=== PATIENT | male | born 1985 | race African-American/Black ===

== ENCOUNTER 2016-06-30 10:48 | Emergency (ER) | payer MEDICAID ==
--- NOTE | 2016-06-30 11:17 | ED Physician Chart ---
Chief Complaint/HPI - Patient Information Date Seen:: 06/30/16 Time Seen:: 11:12 Chief Complaint:: penile dc History of Present Illness:: pt noted yellow penile dc and some mild dysuria since last nt. had chlamydia 1x in past yrs ago. has more than 1 sex partner lately. uses condom w penetrating sex but not w oral. no known sick partners. no fever. no gi upset. no n/v/d. no abd pain, no back pain. no cough. no st. no eye dc. mild rhinitis. no mini pmh. doesnt want a shot. Allergies:: Allergies Allergy/AdvReac Type Severity Reaction Status Date / Time No Known Allergies Allergy Verified 06/30/16 11:00 Vitals:: Vital Signs - 8 hr 06/30/16 10:48 Temp 97.8 F HR 85 RR 16 BP 129/76 O2 Sat % 97 Historian:: Patient Review of Systems - Review of Systems General/Constitutional: No fever, No chills, No weight loss, No weakness, No diaphoresis, No edema, No loss of appetite Skin: No skin lesions, No rash, No bruising Head: No headache, No light-headedness Eyes: No loss of vision, No pain, No diplopia ENT: No earache, Nasal drainage, No sore throat, No tinnitus Neck: No neck pain, No swelling, No thyromegaly, No stiffness, No mass noted Cardio Vascular: No chest pain, No palpitations, No PND, No orthopnea, No edema Pulmonary: No SOB, No cough, No sputum, No wheezing GI: No nausea, No vomiting, No diarrhea, No pain, No melena, No hematochezia, No constipation, No hematemesis G/U: Dysuria, No dysuria, No frequency, No hematuria, Other (penile dc) Musculoskeletal: No bone or joint pain, No back pain, No muscle pain Endocrine: No polyuria, No polydipsia Psychiatric: No prior psych history, No depression, No anxiety, No suicidal ideation Hematopoietic: No bruising, No lymphadenopathy Allergic/Immuno: No urticaria, No angioedema Neurological: No syncope, No focal symptoms, No weakness, No paresthesia, No headache, No seizure, No dizziness, No confusion, No vertigo Past Medical History - Past Medical History Past Medical History: Other (chlamydia genital infection 1x) Social History: Non Smoker, Single Psychiatricy History: Depression Medication: Reviewed Family Medical History - Family Member Maternal Grandmother History Unknown: Yes Ethnicity: Non- Living Status: Still Living Hx Family Diabetes: Yes Physical Exam - Physical Examination General/Constitutional: Awake, Well-developed, well-nourished, Alert, No distress, GCS 15, Non-toxic appearing, Ambulatory Other Gen/Cons comments:: slender build. healthy. no distress. abd is soft/nt pos nabs. no rebound. no cva tndr on back Head: Atraumatic Eyes: Lids, conjuctiva normal, PERRL, EOMI Skin: Nl inspection, No rash, No skin lesions, No ecchymosis, Well hydrated, No lymphadenopathy ENMT: External ears, nose nl, Nasal exam nl, Lips, teeth, gums nl Neck: Nontender, Full ROM w/o pain, No JVD, No nuchal rigidity, No bruit, No mass, No stridor Respiratory: Nl effort/Exclusion, Clear to Auscultation, No Wheeze/Rhonchi/Rales Cardio Vascular: RRR, No murmur, gallop, rubs, NL S1 S2 GI: No tenderness/rebounding/guarding, No organomegaly, No hernia, Normal BS's, Nondistended, No mass/bruits, No McBurney tenderness : No CVA tenderness, NL external genitalia Other comments:: nrml ext male genitals. uncirc w easily reducable foreskin. no testicular tndrness. no hernias. no masses. no rash. no obv mini dc. swab collected for pcr gc/chlam tsting. Extremities: No tenderness or effusion, Full ROM, normal strength in all extremities, No edema, Normal digits & nails Neuro/Psych: Alert/oriented, DTR's symmetric, Normal sensory exam, Normal motor strength, Judgement/insight normal, Mood normal, Normal gait, No focal deficits Misc: normal gait, Normal back, No paraspinal tenderness Labs/Radiology/EKG Results - Lab Results Results: Laboratory Tests 06/30/16 11:00 Urine Source CLEAN C Urine Color YELLOW Urine Clarity HAZY Urine pH 6.0 Ur Specific [place] 1.025 Urine Protein NEGATIVE Urine Glucose (UA) NEGATIVE Urine Ketones NEGATIVE Urine Blood SMALL H Urine Nitrate NEGATIVE Urine Bilirubin NEGATIVE Urine Urobilinogen 1.0 Ur Leukocyte Esterase LARGE H Urine RBC 0-2 H Urine WBC 50-100 H Ur Epithelial Cells FEW Urine Bacteria FEW Urine Mucus FEW ED Septic Shock - . Is Septic Shock (SBP<90, OR Lactate>4 mmol\L) present?: No - <6hrs of presentation: Vital Signs: Vital Signs - 8 hr 06/30/16 10:48 Temp 97.8 F HR 85 RR 16 BP 129/76 O2 Sat % 97 Reassessment (Disposition) - Reassessment Reassessment:: explained to pt that his results will take few days to confirm...advise he fu w pmd saturday for further advice. due to evidence of UTI...pt given regimen w [id number] plus cefixime [id number] as rx as pt doesnt want shot and we have no cefixime in ed. pt advised to use safe sex practices until results known and let partner(s) know if cx pos. Reassessment Condition:: Improved - Diagnosis Diagnosis:: UTI possible STD r/o gc/chlamydia - Aftercare/Follow up Instructions Aftercare/Follow-Up Instructions:: Counseled pt regarding lab results/diagnosis & need follow up - Patient Disposition Discharge/Transfer:: Home Condition at Disposition:: Improved
[2016-06-30 11:35] LABS: URINE BILIRUBIN NEGATIVE (NEGATIVE); URINE BLOOD SMALL (NEGATIVE); URINE COLOR YELLOW; URINE GLUCOSE (UA) NEGATIVE (NEGATIVE); URINE KETONE NEGATIVE (NEGATIVE); URINE PROTEIN NEGATIVE (NEGATIVE)
[2016-06-30 11:38] LABS: URINE BACTERIA FEW /hpf (NONE SEEN); URINE EPITHELIAL CELLS FEW /lpf (FEW); URINE RBC 0-2 /hpf (0-5); URINE WBC 50-100 /hpf (0-5)
== END 2016-06-30 12:09 | disposition home or self-care (01) ==
LOC: ER 10:48
DX: N39.0 Urinary tract infection, site not specified (principal)
CPT/HCPCS: 81001-TC; 87086-90; 87491-90; Z7502

== ENCOUNTER 2017-07-08 13:31 | Emergency (ER) | payer MEDICAID, OTHER ==
--- NOTE | 2017-07-08 14:15 | ED Physician Chart ---
ED Chief Complaint/HPI - Patient Information Date Seen:: 07/08/17 Time Seen:: 13:45 Chief Complaint:: Rash History of Present Illness:: onset x 3 days of generalized itching rash; pt denies trauma, H/As, S/T, neck pain, C/P, SOB, swelling, Abd. 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 Allergies:: Allergies Allergy/AdvReac Type Severity Reaction Status Date / Time No Known Allergies Allergy Verified 06/30/16 11:00 Vitals:: Vital Signs - 8 hr 07/08/17 13:46 Temp 98.7 F HR 115 RR 16 BP 119/78 O2 Sat % 97 Historian:: Patient Review:: Nurse's Note Reviewed ED Review of Systems - Review of Systems General/Constitutional: No fever, No chills, No weight loss, No weakness, No diaphoresis, No edema, No loss of appetite Skin: No skin lesions, Rash, No bruising Head: No headache, No light-headedness Eyes: No loss of vision, No pain, No diplopia ENT: No earache, No nasal drainage, No sore throat, No tinnitus Neck: No neck pain, No swelling, No thyromegaly, No stiffness, No mass noted Cardio Vascular: No chest pain, No palpitations, No PND, No orthopnea, No edema Pulmonary: No SOB, No cough, No sputum, No wheezing GI: No nausea, No vomiting, No diarrhea, No pain, No melena, No hematochezia, No constipation, No hematemesis G/U: No dysuria, No frequency, No hematuria, No nacturia Musculoskeletal: No bone or joint pain, No back pain, No muscle pain Endocrine: No polyuria, No polydipsia Psychiatric: No prior psych history, No depression, No anxiety, No suicidal ideation, No homicidal ideation, No auditory hallucination, No visual hallucination Hematopoietic: No bruising, No lymphadenopathy Allergic/Immuno: No urticaria, No angioedema Neurological: No syncope, No focal symptoms, No weakness, No paresthesia, No headache, No seizure, No dizziness, No confusion, No vertigo ED Past Medical History - Past Medical History Obtainable: Yes Past Medical History: No significant medical hx Family History: HTN Social History: Non Smoker, No Alcohol, No Drug Use, Single Surgical History: None Psychiatricy History: None Medication: Reviewed Family Medical History - Family Member Maternal Grandmother History Unknown: Yes Ethnicity: Non- Living Status: Still Living Hx Family Cancer: No Hx Family Coronary Artery Disease: No Hx Family Congestive Heart Failure: No Hx Family Hypertension: No Hx Family Stroke: No Hx Family Diabetes: No Hx Family Seizures: No Hx Family Dementia: No Hx Family AIDS: No Hx Family HIV: No Hx Family COPD: No Hx Family Hepatitis: No Hx Family Psychiatric Problems: No Hx Family Tuberculosis: No Other Medical History: Bronchitis ED Physical Exam - Physical Examination General/Constitutional: Awake, Well-developed, well-nourished, Alert, No distress, GCS 15, Non-toxic appearing, Ambulatory Head: Atraumatic Eyes: Lids, conjuctiva normal, PERRL, EOMI Skin: Nl inspection, No skin lesions, No ecchymosis, Well hydrated, No lymphadenopathy Other Skin comments:: + generalized Urticaria lesions; no FBs; good NV functions; no cellulitis ENMT: External ears, nose nl, TM canals nl, Nasal exam nl, Lips, teeth, gums nl , Oropharynx nl, Tonsils nl Other ENMT comments:: Uvula: WNL; no FBs; no airway obstruction Neck: Nontender, Full ROM w/o pain, No JVD, No nuchal rigidity, No bruit, No mass, No stridor Other Neck comments:: Supple; no meningeal signs; no cervical tenderness; no bruits Respiratory: Nl effort/Exclusion, Clear to Auscultation, No Wheeze/Rhonchi/Rales Cardio Vascular: RRR, No murmur, gallop, rubs, NL S1 S2, Carotid/Femoral/Distal pulses equal bilaterally GI: No tenderness/rebounding/guarding, No organomegaly, No hernia, Normal BS's, Nondistended, No mass/bruits, No McBurney tenderness Other GI comments:: no pulsatile masses : No CVA tenderness Extremities: No tenderness or effusion, Full ROM, normal strength in all extremities, No edema, Normal digits & nails Neuro/Psych: Alert/oriented, DTR's symmetric, Normal sensory exam, Normal motor strength, Judgement/insight normal, Mood normal, Normal gait, No focal deficits Misc: Normal back, No paraspinal tenderness ED Septic Shock - . Is Septic Shock (SBP<90, OR Lactate>4 mmol\L) present?: No - <6hrs of presentation: Vital Signs: Vital Signs - 8 hr 07/08/17 13:46 Temp 98.7 F HR 115 RR 16 BP 119/78 O2 Sat % 97 ED Reassessment (Disposition) - Reassessment Reassessment:: pt tolerated po fluids well in ER; pt is asymptomatic upon discharge Reassessment Condition:: Improved - Diagnosis Diagnosis:: Rash; Urticaria; Allergic Drug Reaction; Allergic Reaction - Aftercare/Follow up Instructions Aftercare/Follow-Up Instructions:: Counseled pt regarding lab results/diagnosis & need follow up, Refer to Discharge Instructions, Counseled pt & family regarding lab results/diagnosis & need follow up Medication Prescribed:: Rx: Benadryl 25mg po qid prn itching rash; Medrol Dose pack: take as prescribed ; stop all current medications - Patient Disposition Discharge/Transfer:: Home Condition at Disposition:: Stable, Improved (RTER prn if existing s/s reoccur and/or get worse and/or any other new s/s occur; ACIs given for all above Dx; Refer to Oncology Technician/Benchroom Shop Optician/Dentist/Gray Mixing Operator SHAN; F/U with PMD in one day or prn; RTER prn if concerned) ED Discharge Plan - Patient Disposition Admit/Discharge/Transfer: PT DISCHARGED HOME Condition at Disposition: Stable Prescriptions: Diphenhydramine HCL [Benadryl] 25 mg PO QID PRN 7 Days #20 cap PRN Reason: Hives Methylprednisolone [Medrol] 8 mg PO 2XW 7 Days #7 tablet Instructions: Allergies, [id number] Forms: Work Release Form
== END 2017-07-08 14:10 | disposition home or self-care (01) ==
LOC: ER 13:31
DX: L50.0 Allergic urticaria (principal)
CPT/HCPCS: Z7502

== ENCOUNTER 2017-10-27 13:23 | Inpatient (IN) | payer OTHER ==
[2017-10-27 13:55] LABS: % BASOPHILS 2.8 % (0.0-2.0); % EOSINOPHILS 0.8 % (0.0-5.0); % LYMPHOCYTES 18.1 % (20.0-50.0); % MONOCYTES 3.9 % (2.0-10.0); % NEUTROPHILS 74.4 % (40.0-80.0); BASOPHILE ABSOLUTE 0.3 Th/cumm (0-0.2); EOSINOPHILE ABSOLUTE 0.1 Th/cmm (0.1-0.4); HEMATOCRIT 45.6 % (41.0-60); HEMOGLOBIN 14.3 gm/dL (12-16); LYMPHOCYTE ABSOLUTE 1.6 Th/cmm (1.5-3.0); MEAN CELL VOLUME 79.5 fl (80-99); MEAN CORPUSCULAR HEMOGLOBIN 24.9 pg (26.0-30.0); MEAN CORPUSCULAR HGB CONC 31.3 pg (28.0-36.0); MONOCYTE ABSOLUTE 0.4 Th/cmm (0.3-1.0); NEUTROPHILE ABSOLUTE 6.6 Th/cmm (1.8-8.0); PLATELET COUNT 261 Th/cmm (150-400); RED BLOOD COUNT 5.74 Mil/cmm (4.30-5.70); RED CELL DISTRIBUTION WIDTH 13.5 % (11.5-20.0)
[2017-10-27 14:17] LABS: ALB/GLOB RATIO 1.2 (1.0-1.8); ALBUMIN 4.3 gm/dL (4.2-5.5); ALKALINE PHOSPHATASE 60 U/L (34-104); ANION GAP 8.5 (7.0-16.0); BILIRUBIN,TOTAL 1.1 mg/dL (0.3-1.0); BUN - UREA NITROGEN 13 mg/dL (7-25); CALCIUM SERUM 9.8 mg/dL (8.6-10.3); CARBON DIOXIDE 29.7 mEq/L (21.0-31.0); CHLORIDE 102 mEq/L (98-107); CREATININE - SERUM 0.9 mg/dL (0.7-1.3); GFR AFRICAN-AMERICAN > 60.0 ml/min (>90); GFR NON AFRICAN-AMERICAN > 60.0 ml/min; GLUCOSE 99 mg/dL (70-105); POTASSIUM SERUM 4.2 mEq/L (3.5-5.1); SGOT 16 U/L (13-39); SGPT/ALT 16 U/L (7-52); SODIUM SERUM 136 mEq/L (136-145); TOTAL PROTEIN,SERUM 7.9 gm/dL (6.0-8.3)
--- NOTE | 2017-10-27 14:22 | ED Physician Chart ---
ED Chief Complaint/HPI - Patient Information Date Seen:: 10/27/17 Time Seen:: 13:30 Chief Complaint:: RIGHT LOWER QUADRANT ABDOMINAL PAIN SINCE LAST NIGHT. History of Present Illness:: THIS 32-YEAR-OLD MALE HAD ONSET OF RIGHT LOWER QUADRANT ABDOMINAL PAIN DURING THE NIGHT. WHEN HE AWOKE TODAY THE PAIN WAS A 6/10 IN SEVERITY WHICH WAS MADE WORSE BY MOVEMENT, WALKING, AND LAUGHING. THE PAIN IS NOT ACCOMPANIED BY ANY FEVER, CHILLS, NAUSEA, OR VOMITING. THE PATIENT HAS MILD ANOREXIA AND ATE A LIGHT BREAKFAST THIS A.M. THE PAIN DOES NOT RADIATE INTO THE BACK, OR UP INTO THE CHEST. THE PAIN IS DULL BUT WITH A GRABBING COMPONENT WITH MOVEMENT. Allergies:: Allergies Allergy/AdvReac Type Severity Reaction Status Date / Time No Known Allergies Allergy Verified 10/27/17 13:32 Vitals:: Vital Signs - 8 hr 10/27/17 13:41 Temp 99.0 F HR 94 RR 18 BP 145/64 O2 Sat % 98 ED Review of Systems - Review of Systems General/Constitutional: No fever, No chills, No weight loss, No weakness, No diaphoresis, No edema, Loss of appetite Skin: No skin lesions, No rash, No bruising Head: No headache, No light-headedness Eyes: No loss of vision, No pain, No diplopia ENT: No earache, No sore throat, No tinnitus Neck: No neck pain, No swelling, No thyromegaly, No stiffness, No mass noted Cardio Vascular: No chest pain, No palpitations, No PND, No edema Pulmonary: No cough, No sputum, No wheezing GI: No nausea, No vomiting, No diarrhea, Pain, No hematochezia, No constipation , No hematemesis Musculoskeletal: No bone or joint pain, No muscle pain Psychiatric: Prior psych history, Depression, Anxiety, No suicidal ideation, No homicidal ideation, No visual hallucination, Other (DIFFICULTY WITH SHORT-TERM MEMORY.) Hematopoietic: No bruising, No lymphadenopathy Allergic/Immuno: No urticaria, No angioedema Neurological: No syncope, No focal symptoms, No weakness, No paresthesia, No headache, No dizziness, No confusion, No vertigo ED Past Medical History - Past Medical History Past Medical History: Other (NO HISTORY OF HYPERTENSION, DIABETES, CAD, CHF, COPD, DYSLIPOPROTEINEMIA, THYROID DISORDER, OR SEIZURES.) Social History: Non Smoker, Other (uses occasional alcohol, denies taking any illicit drugs.) Employment:: Patient is on Social Security because of mental impairment. Surgical History: None Family Medical History - Family Member Maternal Grandmother History Unknown: Yes Ethnicity: Non- Living Status: Still Living Hx Family Cancer: No Hx Family Coronary Artery Disease: No Hx Family Congestive Heart Failure: No Hx Family Hypertension: No Hx Family Stroke: No Hx Family Diabetes: No Hx Family Seizures: No Hx Family Dementia: No Hx Family AIDS: No Hx Family HIV: No Hx Family COPD: No Hx Family Hepatitis: No Hx Family Psychiatric Problems: No Hx Family Tuberculosis: No Other Medical History: Bronchitis ED Physical Exam - Physical Examination General/Constitutional: Awake, Well-developed, well-nourished, Alert, GCS 15, Non-toxic appearing, Ambulatory Other Gen/Cons comments:: PATIENT HAS MINIMAL DISCOMFORT FROM THE RIGHT LOWER QUADRANT ABDOMINAL PAIN. HE HAS DECLINED PAIN MEDICATION. Head: Atraumatic Eyes: Lids, conjuctiva normal, PERRL, EOMI Skin: Nl inspection, No skin lesions, No ecchymosis, Well hydrated, No lymphadenopathy ENMT: External ears, nose nl, Nasal exam nl, Lips, teeth, gums nl, Oropharynx nl , Tonsils nl Neck: Nontender, Full ROM w/o pain, No JVD, No nuchal rigidity, No bruit, No mass, No stridor Respiratory: Nl effort/Exclusion, Clear to Auscultation, No Wheeze/Rhonchi/Rales Cardio Vascular: RRR, No murmur, gallop, rubs Other Cardio Vascular comments:: PATIENT HAS GOOD PULSES IN ALL 4 EXTREMITIES. GI: No hernia, Nondistended, No mass/bruits Other GI comments:: RECTAL EXAMINATION WAS DEFERRED AT MY DISCRETION. THE ABDOMEN IS FLAT AND NONDISTENDED. BOWEL SOUNDS ARE PRESENT BUT DECREASED. THERE IS MODERATE TENDERNESS IN THE RIGHT LOWER QUADRANT IN THE REGION OF MCBURNEY'S PO[place]. GUARDING WAS PRESENT. NEGATIVE PSOAS SIGN AND NEGATIVE OBTURATOR SIGNS. NO HERNIAS. : No CVA tenderness, NL external genitalia, No discharge Other comments:: THERE IS NO TESTICULAR TENDERNESS OR TESTICULAR MASSES. NORMAL GENITALIA. Extremities: No tenderness or effusion, Full ROM, normal strength in all extremities, No edema Neuro/Psych: Alert/oriented, Normal sensory exam, Normal motor strength, Judgement/insight normal, Mood normal, No focal deficits Other Neuro/Psych comments:: THE PATIENT HAS A GAIT WHICH IS SUGGESTIVE OF APPENDICITIS AND THAT HE HAS GUARDING AND IS HOLDING THE RIGHT SIDE WITH HIS RIGHT HAND. Misc: Normal back, No paraspinal tenderness ED Labs/Radiology/EKG Results - Lab Results Results: Laboratory Tests 10/27/17 13:48 WBC 9.0 RBC 5.74 H Hgb 14.3 Hct 45.6 MCV 79.5 L MCH 24.9 L MCHC Differential 31.3 RDW 13.5 Plt Count 261 MPV 8.0 Neutrophils % 74.4 Lymphocytes % 18.1 L Monocytes % 3.9 Eosinophils % 0.8 Basophils % 2.8 H CBC INTERPRETATION: CBC IS UNREMARKABLE IN THAT THERE IS NO LEUKOCYTOSIS OR ANEMIA. PLATELET COUNT WAS WITHIN THE NORMAL RANGE. CT OF THE ABDOMEN SHOWED A SWOLLENTUBULAR STRUCTUREIN THEIR REGION OF THE APPENDIXWHICH WAS HIGHLY SUGGESTIVEFOR ACUTE APPENDICITIS. Laboratory Tests 10/27/17 10/27/17 10/27/17 13:48 13:48 14:10 WBC 9.0 RBC 5.74 H Hgb 14.3 Hct 45.6 MCV 79.5 L MCH 24.9 L MCHC Differential 31.3 RDW 13.5 Plt Count 261 MPV 8.0 Neutrophils % 74.4 Lymphocytes % 18.1 L Monocytes % 3.9 Eosinophils % 0.8 Basophils % 2.8 H Neutrophils (Manual) Lymphocytes Monocytes Eosinophils PT INR PTT (Actin FS) Sodium 136 Potassium 4.2 Chloride 102 Carbon Dioxide 29.7 Anion Gap 8.5 BUN 13 Creatinine 0.9 Est GFR ( Amer) > 60.0 Est GFR (Non-Af Amer) > 60.0 BUN/Creatinine Ratio 14.4 Glucose 99 POC Glucose Calcium 9.8 Total Bilirubin 1.1 H AST 16 ALT 16 Alkaline Phosphatase 60 Total Protein 7.9 Albumin 4.3 Globulin 3.6 Albumin/Globulin Ratio 1.2 Urine Source RANDOM Urine Color YELLOW Urine Clarity CLEAR Urine pH 7.5 Ur Specific [place] 1.015 Urine Protein TRACE Urine Glucose (UA) NEGATIVE Urine Ketones NEGATIVE Urine Blood NEGATIVE Urine Nitrate NEGATIVE Urine Bilirubin NEGATIVE Urine Urobilinogen 1.0 Ur Leukocyte Esterase NEGATIVE Urine RBC NONE SEEN Urine WBC NONE SEEN Ur Epithelial Cells NONE SEEN Urine Bacteria NONE SEEN 10/28/17 10/28/17 10/28/17 04:15 04:15 04:15 WBC 4.5 L RBC 5.38 Hgb 13.7 Hct 42.0 MCV 78.2 L MCH 25.5 L MCHC Differential 32.6 RDW 13.5 Plt Count 255 MPV 8.8 Neutrophils % Lymphocytes % Monocytes % Eosinophils % Basophils % Neutrophils (Manual) 36 L Lymphocytes 53 H Monocytes 7 Eosinophils 4 PT 11.5 INR 1.10 PTT (Actin FS) 31.6 Sodium 134 L Potassium 3.5 Chloride 102 Carbon Dioxide 27.1 Anion Gap 8.4 BUN 11 Creatinine 0.9 Est GFR ( Amer) > 60.0 Est GFR (Non-Af Amer) > 60.0 BUN/Creatinine Ratio 12.2 Glucose 102 POC Glucose Calcium 9.2 Total Bilirubin AST ALT Alkaline Phosphatase Total Protein Albumin Globulin Albumin/Globulin Ratio Urine Source Urine Color Urine Clarity Urine pH Ur Specific [place] Urine Protein Urine Glucose (UA) Urine Ketones Urine Blood Urine Nitrate Urine Bilirubin Urine Urobilinogen Ur Leukocyte Esterase Urine RBC Urine WBC Ur Epithelial Cells Urine Bacteria 10/28/17 06:29 WBC RBC Hgb Hct MCV MCH MCHC Differential RDW Plt Count MPV Neutrophils % Lymphocytes % Monocytes % Eosinophils % Basophils % Neutrophils (Manual) Lymphocytes Monocytes Eosinophils PT INR PTT (Actin FS) Sodium Potassium Chloride Carbon Dioxide Anion Gap BUN Creatinine Est GFR ( Amer) Est GFR (Non-Af Amer) BUN/Creatinine Ratio Glucose POC Glucose 102 Calcium Total Bilirubin AST ALT Alkaline Phosphatase Total Protein Albumin Globulin Albumin/Globulin Ratio Urine Source Urine Color Urine Clarity Urine pH Ur Specific [place] Urine Protein Urine Glucose (UA) Urine Ketones Urine Blood Urine Nitrate Urine Bilirubin Urine Urobilinogen Ur Leukocyte Esterase Urine RBC Urine WBC Ur Epithelial Cells Urine Bacteria ED Assessment - Assessment General Assessment: CASE SUMMARY:THIS 32-YEAR-OLD MALEPRESENTED TO THE EMERGENCY DEPARTMENTWITH PAIN IN THE RIGHT LOWER QUADRANTTHAT BEGAN LAST EVENING.THE PAIN WAS WORSE WITH MOVEMENT,WALKING,AND ESPECIALLY WITH LAUGHING.ON PHYSICAL EXAMINATIONTHERE WAS MODERATETO SEVERE TENDERNESS OVER MCBURNEY'S POINTWHAT'S ASSOCIATEDREBOUNDING GUARDING.THE WHITE BLOOD COUNT WAS WITHIN NORMAL PARAMETERS.A CT SCAN OF THE ABDOMENLUCY JUST UP OF ACUTE APPENDICITIS.THE PATIENT WAS TREATED WITH IV SOSYNAND ID FLUIDS.THE PATIENT DECLINEANY PAIN MEDICATION.HE WAS ADMITTEDAND SURGICAL CONSULTATIONIS PENDING. JACQUELYN MEDINAX FOR LOWER ABDOMINAL PAIN: NOT UTI BASED ON PATIENT'S HISTORY,PHYSICAL EXAMINATION,AND NEGATIVE UA. NOT DIVERTICULITISBASED ON CT SCAN OF THE ABDOMEN. NOTI SCHEMIC POLITENESSBASED ON HISTORY,EXAMINATION,AND CT RESULTS. ED Septic Shock - . Is Septic Shock (SBP<90, OR Lactate>4 mmol\L) present?: No - <6hrs of presentation: Vital Signs: Vital Signs - 8 hr //18 13:41 Temp 99.0 F HR 94 RR 18 BP 145/64 O2 Sat % 98 ED Reassessment (Disposition) - Reassessment Reassessment Condition:: Unchanged - Diagnosis Diagnosis:: ACUTE APPENDICITIS ED Discharge Plan - Patient Disposition Admit/Discharge/Transfer: Acute Care w/in this hosp
[2017-10-27] MEDS ORDERED: IOHEXOL 300mgI/mL 100 ML VIAL ONE (14:46)
[2017-10-27 15:06] LABS: URINE MICROSCOPIC INDICATED? YES; URINE SOURCE RANDOM
[2017-10-27 15:43] LABS: URINE BILIRUBIN NEGATIVE (NEGATIVE); URINE BLOOD NEGATIVE (NEGATIVE); URINE GLUCOSE (UA) NEGATIVE (NEGATIVE); URINE KETONE NEGATIVE (NEGATIVE); URINE LEUKOCYTE ESTERASE NEGATIVE (NEGATIVE); URINE NITRATE NEGATIVE (NEGATIVE); URINE PH 7.5 (4.6 - 8.0); URINE PROTEIN TRACE mg/dL (NEGATIVE)
[2017-10-27 15:52] LABS: URINE COLOR YELLOW
[2017-10-27 15:53] LABS: URINE BACTERIA NONE SEEN /hpf (NONE SEEN); URINE CLARITY CLEAR (CLEAR); URINE EPITHELIAL CELLS NONE SEEN /lpf (FEW); URINE RBC NONE SEEN /hpf (0-5); URINE WBC NONE SEEN /hpf (0-5)
[2017-10-27] MEDS ORDERED: Piperacillin Sodium/Tazobact 3.375 gm Vial IV ONE ×2 (16:13→20:43)
[2017-10-27] MEDS ORDERED: Morphine Sulfate 4 mg/mL 1mL Syr IVP PRN ×2 (17:39)
[2017-10-27] MEDS: D5-0.45NS 1,000 ML IV SCH (18:03)
--- NOTE | 2017-10-27 18:07 | Consultation ---
Consult Note - Consult Note Service Date: 10/27/17 Referring Physician: Katelyn Sales Consult Note: PHYSICIAN Consultation Note: Date of Admission: 10/27/17 Purpose of Consultation: Acute appendicitis. Chief Complaint: Abdominal pain. History of Present Illness: 32-year-old male with asignificant past medical history presented to ER with a right lower abdominal pain, colicky in nature. It gets worse with the movement. On initial evaluation, his temperature was 99 F and WBC count was 9000. The CT abdomen pelvis is not available at this time, but it showed acute appendicitis as per the staff. Surgical consult called. Vancomycin and Zosyn were started. Past Medical History: Nonsignificant. Allergies Allergy/AdvReac Type Severity Reaction Status Date / Time No Known Allergies Allergy Verified 10/27/17 13:32 Vital Signs Temp 98.5 F 10/27/17 17:00 Pulse 62 10/27/17 17:00 Resp 16 10/27/17 17:00 BP 128/81 10/27/17 17:00 Pulse Ox 100 10/27/17 17:00 Home Medication Medication Instructions Recorded Type Duloxetine HCl [Cymbalta] 20 mg PO DAILY 04/26/13 History aripIPRAZOLE [Abilify] 10 mg PO DAILY 04/26/13 History Diphenhydramine HCL [Benadryl] 25 mg PO QID PRN 7 Days #20 cap 07/08/17 Rx Methylprednisolone [Medrol] 8 mg PO 2XW 7 Days #7 tablet 07/08/17 Rx Current Medications Generic Name Dose Route Start Last Admin Trade Name Freq PRN Reason Stop Dose Admin Acetaminophen 650 mg 10/27/17 17:50 Tylenol 650mg Supp RC 12/26/17 17:49 Q6H PRN Pain or Fever >101 Dextrose/Sodium Chloride 1,000 mls @ 75 mls/hr 10/27/17 17:45 D5-0.45ns IV 12/26/17 17:44 .[id number] JYOTI Vancomycin HCl 1 gm/ Sodium 250 mls @ 165 mls/hr 10/28/17 09:00 Chloride IV 12/27/17 08:59 Q24H JYOTI Piperacillin Sod/Tazobactam 50 mls @ 100 mls/hr 10/27/17 21:00 Sod 3.375 gm/ Sodium Chloride IV 12/26/17 20:59 Q8HR JYOTI Miscellaneous 1 ea 10/27/17 17:40 Vancomycin Iv Per Pharmacy 12/26/17 17:39 PRN PRN PROTOCOL Morphine Sulfate 1 mg 10/27/17 17:39 Morphine IVP 12/26/17 17:38 Q4HR PRN Pain (Moderate) Morphine Sulfate 2 mg 10/27/17 17:39 Morphine IVP 12/26/17 17:38 Q4HR PRN Severe Pain Ondansetron HCl 4 mg 10/27/17 17:49 Zofran IV 12/26/17 17:48 Q6H PRN Nausea / Vomiting Review of Systems: A 12 point ROS was reviewed with the pertinent positive and negatives noted in the HPI. Physical Exam: General: Comfortable, not in acute distress. Well-nourished well-developed. HEENT: Head: Normocephalic, atraumatic. Oral cavity: Moist, pink tongue. Eyes : Pallor is present. Neck: Supple, no JVD. Cardio: S1 and S2 within normal limits regular rhythm no murmur or gallop. Respiratory: Vesicular present. No crackles no wheezing. Abdominal: Soft, tenderness in right lower quadrant. McBurney's point tenderness present. Rebound present. No rigidity. Succution splash present. Genital/Urinary: Deferred. Extremities: No cyanosis no clubbing no edema Neurological: Alert awake oriented 3 no focal neuro sheet. Assessment: 1. Acute appendicitis. Plan: Agree with the vancomycin and Zosyn. Surgical treatment as per surgical consultation. Signed, Tavo Wise M.D. [id number]
[2017-10-28 04:50] LABS: MANUAL DIFF REQUIRED? YES; RED CELL DISTRIBUTION WIDTH 13.5 % (11.5-20.0)
[2017-10-28 05:08] LABS: INR 1.1 (0.5-1.4); PROTHROMBIN TIME (TEST) 11.5 SECONDS (9.5-11.5)
[2017-10-28 05:09] LABS: ANION GAP 8.4 (7.0-16.0); BUN - UREA NITROGEN 11 mg/dL (7-25); CALCIUM SERUM 9.2 mg/dL (8.6-10.3); CARBON DIOXIDE 27.1 mEq/L (21.0-31.0); CHLORIDE 102 mEq/L (98-107); CREATININE - SERUM 0.9 mg/dL (0.7-1.3); GFR AFRICAN-AMERICAN > 60.0 ml/min (>90); GFR NON AFRICAN-AMERICAN > 60.0 ml/min; GLUCOSE 102 mg/dL (70-105); POTASSIUM SERUM 3.5 mEq/L (3.5-5.1); SODIUM SERUM 134 mEq/L (136-145)
[2017-10-28 05:10] LABS: HEMOGLOBIN 13.7 gm/dL (12-16); MEAN CELL VOLUME 78.2 fl (80-99); MEAN CORPUSCULAR HEMOGLOBIN 25.5 pg (26.0-30.0); MEAN CORPUSCULAR HGB CONC 32.6 pg (28.0-36.0); MEAN PLATELET VOLUME 8.8 fl; PLATELET COUNT 255 Th/cmm (150-400); RED BLOOD COUNT 5.38 Mil/cmm (4.30-5.70); WHITE BLOOD COUNT 4.5 Th/cmm (4.8-10.8)
[2017-10-28 06:27] LABS: EOSINOPHIL 4 % (0-5); LYMPHOCYTE 53 % (20-50); MONOCYTE 7 % (2-10); NEUTROPHILS 36 % (40-80); TOTAL CELLS COUNTED 100
[2017-10-28] MEDS ORDERED: Piperacillin Sodium/Tazobact 3.375 gm Vial IV ONE (06:52)
--- NOTE | 2017-10-28 07:27 | Consultation ---
DATE OF CONSULTATION: 10/28/2017 THE PATIENT'S AGE: 32. SEX: Male. PHYSICIAN: Dr. Sales. DIRECTOR CONSUMER: Dr. Deras. TYPE OF THE REPORT: Psychiatric consult. REASON FOR THE CONSULT: Depression. HISTORY OF PRESENT ILLNESS: The patient is a 32-year-old male, who was admitted to the hospital with a possible acute appendicitis. The patient has history of depression, has been depressed and Dr. Sales asked me to evaluate the patient. The patient admitted to having been depressed. He has been feeling at times hopeless. He has no specific place to live, which affected him. The patient said that he used to take Cymbalta to help with his depression. The patient denies any alcohol or street drug use except occasionally. PAST PSYCHIATRIC HISTORY: The patient said that he got outpatient treatment for treatment of depression. PAST MEDICAL HISTORY: The patient admitted with possible appendicitis. SOCIAL HISTORY: The patient is single, never and has no children. He is unemployed. Denies legal issues or abuse issues. Denies alcohol or drug abuse. MENTAL STATUS EXAM: The patient appears his stated age. Cooperative. Anxious. Depressed mood. Thought processes are goal directed. The patient denies any auditory or visual hallucinations or delusions. He denies any thoughts of suicide or homicide. The patient is alert and oriented to time, place, person, and situation. Intact immediate, recent and remote memories. Fair insight and judgment. ASSESSMENT: PRIMARY DIAGNOSES: Major depression, moderate, recurrent, without psychotic features. TREATMENT PLAN: We will monitor the patient's condition. We will start the patient on Cymbalta and we will adjust the dose. We will reevaluate for further recommendations. Thanks to Dr. Sales. JOB# [id number]
--- NOTE | 2017-10-28 07:48 | Diagnostic Imaging Report ---
CT abdomen and pelvis with intravenous contrast Indication: Right lower quadrant pain Comparison: None, Technique: Axial images were obtained from the lung bases to the bilateral proximal femurs with IV contrast. Coronal reconstructions were made. total DLP: 432, CTDI8.8 FINDINGS: Hypoventilatory changes of the lung bases are noted. No evidence of focal hepatic, or splenic lesions. No focal pancreatic or axial lesions. No evidence of hydronephrosis or focal renal lesions. Duplicated right renal collecting system is noted. The bladder is underdistended limiting its evaluation. There are appendix appears borderline prominent with minimal haziness of the fat planes in this region. No free fluid or free air. The osseous structures demonstrate no acute abnormalities. IMPRESSION: Borderline prominent appendix with minimal haziness of the periappendiceal fat planes. Findings may represent early acute appendicitis. Clinical correlation and short-term follow-up is recommended. If necessary a follow-up repeat CT in 12-24 hours may be obtained. No evidence of free fluid or free air. Referring team was aware of the findings at the time of examination.
[2017-10-28] MEDS ORDERED: Bupivacaine 0.5% 10 mL Vial INJ ONE (08:10)
--- NOTE | 2017-10-28 08:12 | Diagnostic Imaging Report ---
Portable chest x-ray History: Shortness of breath Allowing for portable technique the heart size is normal. No focal pulmonary parenchymal processes. No hilar or mediastinal abnormalities. Impression: No acute abnormalities.
[2017-10-28] MEDS ORDERED: fentaNYL Citrate 100 mcg/2mL Vial ONE ×2 (08:34→09:50)
[2017-10-28] MEDS ORDERED: Neostigmine 10mg/10mL Vial ONE (08:55)
[2017-10-28] MEDS ORDERED: Propofol **SURGERY USE ONLY** 20 ML IV ONE (08:56)
[2017-10-28] MEDS ORDERED: Morphine Sulfate 4 mg/mL 1mL Syr IVP PRN (09:51)
--- NOTE | 2017-10-28 10:05 | Operative Report ---
DATE OF SURGERY: 10/28/2017 TIME: 9:42 a.m. PREOPERATIVE DIAGNOSIS: Acute appendicitis. POSTOPERATIVE DIAGNOSIS: Acute appendicitis. OPERATION PERFORMED: Laparoscopic appendectomy. SPECIMENS: Appendix. ANESTHESIA: General and local. ANESTHESIOLOGIST: Dr. Stefania Stanton. ESTIMATED BLOOD LOSS: Minimal, less than 20 mL. SURGEON: Cristiano Velasquez MD. ENVIRONMENTAL ANALYST: None. PROSTHETIC DEVICES: None. COMPLICATIONS: None. PROCEDURE DESCRIPTION: After confirming patient identification, procedure to be done, the patient was placed in supine position. The patient administered general anesthesia, intubated uneventfully. The abdomen was then shaved and prepped and draped in usual sterile fashion. Timeout performed. A supraumbilical transverse incision was made with the scalpel. Fascia was incised, entered into the abdominal cavity without injuring underlying bowel. CO2 pneumoperitoneum was achieved using open [place] technique. The patient was placed in laparoscopic appendectomy position, head down, rotated to the left side. A 12-mm port was placed in the right upper quadrant, a 5-mm port was placed in the suprapubic area. The appendix was identified. It was grasped and lifted upwards. It was somewhat thickened, enlarged and with vascular injection consistent with early acute appendicitis. The [place] stapler device was then fired across the base of the appendix and the mesoappendix as well and 1 firing of the stapler. The appendix was disconnected from the cecum, placed into an Endobag, and removed through the supraumbilical port site. Some Surgicel was placed at the staple line as there was some mild oozing from that site. Hemostasis was completely established and confirmed. After 5-10 minutes of observation. The irrigation fluid was suctioned out. The 12-mm right upper quadrant port was removed. The Da-Chandler closure system was used to approximate the fascia using 0 Vicryl stitches. The 5-mm port was removed under direct visualization. CO2 pneumoperitoneum was released. The supraumbilical port fascia was approximated with interrupted 0 Vicryl sutures. The skin and subcutaneous of all port sites were then injected with local anesthesia. Skin was approximated using skin georges. Dressings were applied. The patient tolerated the procedure well. The patient was woken up from anesthesia and taken to recovery room in stable condition. [facility]# [id number]
[2017-10-28] MEDS: D5-0.45NS 1,000 ML IV SCH (11:17)
[2017-10-28] MEDS: Morphine Sulfate 4 mg/mL 1mL Syr IVP PRN ×3 (11:37→21:07)
--- NOTE | 2017-10-28 21:17 | Consultation ---
DATE OF CONSULTATION: 10/28/2017 SURGICAL CONSULTATION NOTE TIME: 08:45 a.m. HISTORY OF PRESENT ILLNESS: The patient is a 32-year-old -[place] male, healthy prior, no prior surgeries. Complains of right lower quadrant abdominal pain last night, came into the Emergency Room with reported 6/10 pain in severity, made worse by walking and laughing. He denies any fevers or chills, nausea, vomiting or diarrhea. He has some mild anorexia. He came into the Emergency Room. He is afebrile. Vital signs stable. Normal white blood cell count, but his CT scan showed findings consistent with a mildly inflamed appendix suspicious for early acute appendicitis. He still this morning has some right lower quadrant abdominal pain and some tenderness as well too. PAST MEDICAL HISTORY: Unremarkable. PAST SURGICAL HISTORY: None. MEDICATIONS: None. ALLERGIES: No known drug allergies. REVIEW OF SYSTEMS: Except for GI normal. PHYSICAL EXAMINATION: VITAL SIGNS: He is 68 kilograms. BMI is 22. He is afebrile. His vital signs otherwise stable. HEENT AND NECK: Within normal limits. CHEST: Clear to auscultation bilaterally. CARDIOVASCULAR: Regular rhythm and rate. ABDOMEN: He has some mild right lower quadrant tenderness to deep palpation. He has no guarding, rebound or generalized peritoneal signs. NEUROVASCULAR: Otherwise normal. No CVA, flank, or paraspinal tenderness. LABORATORY DATA: His white blood cell count 4.5, H and H is 13.7 and 42 and platelet count 255. His chem-7 is otherwise normal. Total bilirubin 1.1 yesterday. Urine; negative urine leukocyte esterase and no urine bacteria seen. His coags are normal. IMAGING: CT scan of abdomen and pelvis done last night reveals a borderline prominent appendix with minimal haziness of the periappendiceal fat planes, may represent acute early appendicitis. No evidence of free air or obstruction. ID consultation has been obtained. IMPRESSION AND PLAN: The patient is a 32-year-old male, otherwise healthy, with right lower quadrant abdominal pain, tenderness and afebrile. White blood cell count normal, but CT scan shows findings consistent with early acute appendicitis and inflammatory changes and borderline thickened appendix. He does have some tenderness on examination of right lower quadrant. Clinically, he has symptoms and signs consistent with early acute appendicitis. I discussed with him the risks and benefits of the surgery and laparoscopic appendectomy. He agrees to proceed with the surgery. All questions answered. Risks and benefits explained including bleeding, infection, bowel injury, peritonitis. Despite these risks, he wishes to proceed with surgery. All questions answered. JOB# [id number]
--- NOTE | 2017-10-28 23:58 | Infectious Disease Prog Note ---
Infectious Disease Subjective - Review of Systems Service Date: 10/28/17 Subjective: Laparoscopic appendectomy performed today Infectious Disease Objective - Results Result Diagrams: 10/28/17 04:15 10/28/17 04:15 Recent Labs: Laboratory Last Values WBC 4.5 Th/cmm (4.8-10.8) L 10/28/17 04:15 RBC 5.38 Mil/cmm (4.30-5.70) 10/28/17 04:15 Hgb 13.7 gm/dL (12-16) 10/28/17 04:15 Hct 42.0 % (41.0-60) 10/28/17 04:15 MCV 78.2 fl (80-99) L 10/28/17 04:15 MCH 25.5 pg (26.0-30.0) L 10/28/17 04:15 MCHC Differential 32.6 pg (28.0-36.0) 10/28/17 04:15 RDW 13.5 % (11.5-20.0) 10/28/17 04:15 Plt Count 255 Th/cmm (150-400) 10/28/17 04:15 MPV 8.8 fl 10/28/17 04:15 Neutrophils % 74.4 % (40.0-80.0) 10/27/17 13:48 Lymphocytes % 18.1 % (20.0-50.0) L 10/27/17 13:48 Monocytes % 3.9 % (2.0-10.0) 10/27/17 13:48 Eosinophils % 0.8 % (0.0-5.0) 10/27/17 13:48 Basophils % 2.8 % (0.0-2.0) H 10/27/17 13:48 Neutrophils (Manual) 36 % (40-80) L 10/28/17 04:15 Lymphocytes 53 % (20-50) H 10/28/17 04:15 Monocytes 7 % (2-10) 10/28/17 04:15 Eosinophils 4 % (0-5) 10/28/17 04:15 PT 11.5 SECONDS (9.5-11.5) 10/28/17 04:15 INR 1.10 (0.5-1.4) 10/28/17 04:15 PTT (Actin FS) 31.6 SECONDS (26.0-38.0) 10/28/17 04:15 Sodium 134 mEq/L (136-145) L 10/28/17 04:15 Potassium 3.5 mEq/L (3.5-5.1) 10/28/17 04:15 Chloride 102 mEq/L (98-107) 10/28/17 04:15 Carbon Dioxide 27.1 mEq/L (21.0-31.0) 10/28/17 04:15 Anion Gap 8.4 (7.0-16.0) 10/28/17 04:15 BUN 11 mg/dL (7-25) 10/28/17 04:15 Creatinine 0.9 mg/dL (0.7-1.3) 10/28/17 04:15 Est GFR ( Amer) > 60.0 ml/min (>90) 10/28/17 04:15 Est GFR (Non-Af Amer) > 60.0 ml/min 10/28/17 04:15 BUN/Creatinine Ratio 12.2 10/28/17 04:15 Glucose 102 mg/dL (70-105) 10/28/17 04:15 POC Glucose 102 MG/DL (70 - 105) 10/28/17 06:29 Calcium 9.2 mg/dL (8.6-10.3) 10/28/17 04:15 Total Bilirubin 1.1 mg/dL (0.3-1.0) H 10/27/17 13:48 AST 16 U/L (13-39) 10/27/17 13:48 ALT 16 U/L (7-52) 10/27/17 13:48 Alkaline Phosphatase 60 U/L (34-104) 10/27/17 13:48 Total Protein 7.9 gm/dL (6.0-8.3) 10/27/17 13:48 Albumin 4.3 gm/dL (4.2-5.5) 10/27/17 13:48 Globulin 3.6 gm/dL 10/27/17 13:48 Albumin/Globulin Ratio 1.2 (1.0-1.8) 10/27/17 13:48 Urine Source RANDOM 10/27/17 14:10 Urine Color YELLOW 10/27/17 14:10 Urine Clarity CLEAR (CLEAR) 10/27/17 14:10 Urine pH 7.5 (4.6 - 8.0) 10/27/17 14:10 Ur Specific [place] 1.015 (1.005-1.030) 10/27/17 14:10 Urine Protein TRACE mg/dL (NEGATIVE) 10/27/17 14:10 Urine Glucose (UA) NEGATIVE mg/dL (NEGATIVE) 10/27/17 14:10 Urine Ketones NEGATIVE mg/dL (NEGATIVE) 10/27/17 14:10 Urine Blood NEGATIVE (NEGATIVE) 10/27/17 14:10 Urine Nitrate NEGATIVE (NEGATIVE) 10/27/17 14:10 Urine Bilirubin NEGATIVE (NEGATIVE) 10/27/17 14:10 Urine Urobilinogen 1.0 E.U./dL (0.2 - 1.0) 10/27/17 14:10 Ur Leukocyte Esterase NEGATIVE (NEGATIVE) 10/27/17 14:10 Urine RBC NONE SEEN /hpf (0-5) 10/27/17 14:10 Urine WBC NONE SEEN /hpf (0-5) 10/27/17 14:10 Ur Epithelial Cells NONE SEEN /lpf (FEW) 10/27/17 14:10 Urine Bacteria NONE SEEN /hpf (NONE SEEN) 10/27/17 14:10 - Physical Exam Vitals and I&O: Vital Signs Temp 98.0 F 10/28/17 15:07 Pulse 60 10/28/17 15:07 Resp 17 10/28/17 20:00 BP 126/84 10/28/17 15:07 Pulse Ox 100 10/28/17 15:07 Intake & Output 10/28/17 10/28/17 10/29/17 06:59 18:59 06:59 Intake Total 50 1300 500 Output Total 300 Balance 50 1300 200 Weight (lbs) 78.29 kg 68.039 kg Intake: Intake, IV Amount 50 1300 300 D5-0.45NS 1,000 ml @ 75 1000 mls/hr IV .[id number] [facility] Rx #:[id number] Piperacillin Sodium/ 50 50 50 Tazobact 3.375 gm In Sodium Chloride 0.9% 50 ml @ 100 mls/hr IV Q8HR [facility] Rx#:[id number] Vancomycin HCl 1 gm In 250 250 Sodium Chloride 0.9% 250 ml @ 165 mls/hr IV Q8H [facility] Rx#:[id number] Oral 0 200 Output: Urine 300 Other: Weight Source Bedscale Estimated Active Medications: Current Medications Acetaminophen (Tylenol 650mg Supp) 650 mg RC Q6H PRN PRN Reason: Pain or Fever >101 Stop: 12/26/17 17:49 Duloxetine HCl (Cymbalta) 30 mg PO DAILY [facility] PRN Reason: Protocol Stop: 12/27/17 08:59 Dextrose/Sodium Chloride (D5-0.45ns) 1,000 mls @ 75 mls/hr IV .[id number] [facility] Stop: 12/26/17 17:44 Last Admin: 10/28/17 11:17 Dose: 75 mls/hr Piperacillin Sod/Tazobactam (Sod 3.375 gm/ Sodium Chloride) 50 mls @ 100 mls/ hr IV Q8HR [facility] Stop: 12/26/17 20:59 Last Admin: 10/28/17 21:06 Dose: 100 mls/hr Vancomycin HCl 1 gm/ Sodium (Chloride) 250 mls @ 165 mls/hr IV Q8H [facility] Stop: 12/27/17 10:59 Last Infusion: 10/28/17 19:41 Dose: Infused Miscellaneous (Vancomycin Iv Per Pharmacy) 1 ea MC PRN PRN PRN Reason: PROTOCOL Stop: 12/26/17 17:39 Morphine Sulfate (Morphine) 2 mg IVP Q4H PRN PRN Reason: Pain (Moderate) Stop: 12/27/17 09:50 Last Admin: 10/28/17 21:07 Dose: 2 mg Morphine Sulfate (Morphine) 4 mg IVP Q4H PRN PRN Reason: Severe Pain Stop: 12/27/17 09:50 Ondansetron HCl (Zofran) 4 mg IV Q6H PRN PRN Reason: Nausea / Vomiting Stop: 12/26/17 17:48 General: no acute distress, well developed, well nourished HEENT: atraumatic, normocephalic, PERRLA, EOMI, moist mucous membrane Neck: supple, no thyromegaly Cardiovascular: S1S2, regular Lungs: clear to auscultation bilaterally, clear to percussion Abdomen: soft, tender Extremities: no cyanosis, no clubbing, no edema Neurological: awake, alert, oriented Skin: intact - Procedures Procedures: Procedures Procedure Code Date APPLICATION OF FINGER SPLINT 68745 02/12/07 APPLICATION OF SPLINT 93.54 02/12/07 CLOSURE SKIN & SUBCUTANEOUS NEC 86.59 11/03/98 INJECT/INFUSE NEC 99.29 04/26/13 RESECTION OF APPENDIX, PERCUTANEOUS ENDOSCOPIC APPROACH [id number] 10/27/17 RPR S/N/AX/GEN/TRNK 2.5CM/< 57275 11/03/98 Infectious Disease Assmt/Plan - Assessment Assessment: 1. Acute appendicitis.. 2. Status post laparoscopic Appendectomy - Plan Plan: When he is ready for discharge, may change antibiotic to by mouth for 7 days from now.
[2017-10-29] MEDS: Morphine Sulfate 4 mg/mL 1mL Syr IVP PRN ×5 (01:05→22:06)
[2017-10-29] MEDS: D5-0.45NS 1,000 ML IV SCH (06:30)
[2017-10-29] MEDS ORDERED: Probiotic Screen MC PRN (09:30)
--- NOTE | 2017-10-29 12:07 | Progress Notes ---
DATE: 10/29/2017 SUBJECTIVE: Chart reviewed and the patient interviewed. Also discussed the patient's condition with the staff and reviewed records and labs. The patient's affect is brighter. The patient is depressed, but he is still anxious. He is in pain because of having appendectomy surgery done yesterday. On the other hand, the patient is cooperative and compliant with taking Cymbalta with no side effects. ASSESSMENT: The patient is cooperative with his treatment. TREATMENT PLAN: Continue monitoring his behavior and we will continue to follow up closely. JOB# [id number]
--- NOTE | 2017-10-29 12:29 | General Progress Note ---
Subjective - Review of Systems Events since last encounter: in no distress Objective - Results Result Diagrams: 10/28/17 04:15 10/28/17 04:15 Recent Labs: Laboratory Last Values WBC 4.5 Th/cmm (4.8-10.8) L 10/28/17 04:15 RBC 5.38 Mil/cmm (4.30-5.70) 10/28/17 04:15 Hgb 13.7 gm/dL (12-16) 10/28/17 04:15 Hct 42.0 % (41.0-60) 10/28/17 04:15 MCV 78.2 fl (80-99) L 10/28/17 04:15 MCH 25.5 pg (26.0-30.0) L 10/28/17 04:15 MCHC Differential 32.6 pg (28.0-36.0) 10/28/17 04:15 RDW 13.5 % (11.5-20.0) 10/28/17 04:15 Plt Count 255 Th/cmm (150-400) 10/28/17 04:15 MPV 8.8 fl 10/28/17 04:15 Neutrophils % 74.4 % (40.0-80.0) 10/27/17 13:48 Lymphocytes % 18.1 % (20.0-50.0) L 10/27/17 13:48 Monocytes % 3.9 % (2.0-10.0) 10/27/17 13:48 Eosinophils % 0.8 % (0.0-5.0) 10/27/17 13:48 Basophils % 2.8 % (0.0-2.0) H 10/27/17 13:48 Neutrophils (Manual) 36 % (40-80) L 10/28/17 04:15 Lymphocytes 53 % (20-50) H 10/28/17 04:15 Monocytes 7 % (2-10) 10/28/17 04:15 Eosinophils 4 % (0-5) 10/28/17 04:15 PT 11.5 SECONDS (9.5-11.5) 10/28/17 04:15 INR 1.10 (0.5-1.4) 10/28/17 04:15 PTT (Actin FS) 31.6 SECONDS (26.0-38.0) 10/28/17 04:15 Sodium 134 mEq/L (136-145) L 10/28/17 04:15 Potassium 3.5 mEq/L (3.5-5.1) 10/28/17 04:15 Chloride 102 mEq/L (98-107) 10/28/17 04:15 Carbon Dioxide 27.1 mEq/L (21.0-31.0) 10/28/17 04:15 Anion Gap 8.4 (7.0-16.0) 10/28/17 04:15 BUN 11 mg/dL (7-25) 10/28/17 04:15 Creatinine 0.9 mg/dL (0.7-1.3) 10/28/17 04:15 Est GFR ( Amer) > 60.0 ml/min (>90) 10/28/17 04:15 Est GFR (Non-Af Amer) > 60.0 ml/min 10/28/17 04:15 BUN/Creatinine Ratio 12.2 10/28/17 04:15 Glucose 102 mg/dL (70-105) 10/28/17 04:15 POC Glucose 102 MG/DL (70 - 105) 10/28/17 06:29 Calcium 9.2 mg/dL (8.6-10.3) 10/28/17 04:15 Total Bilirubin 1.1 mg/dL (0.3-1.0) H 10/27/17 13:48 AST 16 U/L (13-39) 10/27/17 13:48 ALT 16 U/L (7-52) 10/27/17 13:48 Alkaline Phosphatase 60 U/L (34-104) 10/27/17 13:48 Total Protein 7.9 gm/dL (6.0-8.3) 10/27/17 13:48 Albumin 4.3 gm/dL (4.2-5.5) 10/27/17 13:48 Globulin 3.6 gm/dL 10/27/17 13:48 Albumin/Globulin Ratio 1.2 (1.0-1.8) 10/27/17 13:48 Urine Source RANDOM 10/27/17 14:10 Urine Color YELLOW 10/27/17 14:10 Urine Clarity CLEAR (CLEAR) 10/27/17 14:10 Urine pH 7.5 (4.6 - 8.0) 10/27/17 14:10 Ur Specific [place] 1.015 (1.005-1.030) 10/27/17 14:10 Urine Protein TRACE mg/dL (NEGATIVE) 10/27/17 14:10 Urine Glucose (UA) NEGATIVE mg/dL (NEGATIVE) 10/27/17 14:10 Urine Ketones NEGATIVE mg/dL (NEGATIVE) 10/27/17 14:10 Urine Blood NEGATIVE (NEGATIVE) 10/27/17 14:10 Urine Nitrate NEGATIVE (NEGATIVE) 10/27/17 14:10 Urine Bilirubin NEGATIVE (NEGATIVE) 10/27/17 14:10 Urine Urobilinogen 1.0 E.U./dL (0.2 - 1.0) 10/27/17 14:10 Ur Leukocyte Esterase NEGATIVE (NEGATIVE) 10/27/17 14:10 Urine RBC NONE SEEN /hpf (0-5) 10/27/17 14:10 Urine WBC NONE SEEN /hpf (0-5) 10/27/17 14:10 Ur Epithelial Cells NONE SEEN /lpf (FEW) 10/27/17 14:10 Urine Bacteria NONE SEEN /hpf (NONE SEEN) 10/27/17 14:10 Vancomycin Trough 9.4 ug/mL (5-10) 10/29/17 10:15 - Physical Exam Vitals and I&O: Vital Signs Temp 98.4 F 10/29/17 08:17 Pulse 70 10/29/17 08:17 Resp 18 10/29/17 08:17 BP 139/94 10/29/17 08:17 Pulse Ox 100 10/29/17 08:17 Intake & Output 10/28/17 10/29/17 10/29/17 18:59 06:59 18:59 Intake Total 1300 1700 Output Total 600 Balance 1300 1100 Weight (lbs) 68.039 kg Intake: Intake, IV Amount 1300 1350 D5-0.45NS 1,000 ml @ 75 1000 1000 mls/hr IV .[id number] [facility] Rx #:[id number] Piperacillin Sodium/ 50 100 Tazobact 3.375 gm In Sodium Chloride 0.9% 50 ml @ 100 mls/hr IV Q8HR [facility] Rx#:[id number] Vancomycin HCl 1 gm In 250 250 Sodium Chloride 0.9% 250 ml @ 165 mls/hr IV Q8H [facility] Rx#:[id number] Oral 350 Output: Urine 600 Other: Weight Source Estimated Active Medications: Current Medications Acetaminophen (Tylenol 650mg Supp) 650 mg RC Q6H PRN PRN Reason: Pain or Fever >101 Stop: 12/26/17 17:49 Duloxetine HCl (Cymbalta) 30 mg PO DAILY [facility] PRN Reason: Protocol Stop: 12/27/17 08:59 Last Admin: 10/29/17 08:58 Dose: 30 mg Dextrose/Sodium Chloride (D5-0.45ns) 1,000 mls @ 75 mls/hr IV .[id number] [facility] Stop: 12/26/17 17:44 Last Admin: 10/29/17 06:30 Dose: 75 mls/hr Piperacillin Sod/Tazobactam (Sod 3.375 gm/ Sodium Chloride) 50 mls @ 100 mls/ hr IV Q8HR [facility] Stop: 12/26/17 20:59 Last Admin: 10/29/17 05:16 Dose: 100 mls/hr Vancomycin HCl 1 gm/ Sodium (Chloride) 250 mls @ 165 mls/hr IV Q8H [facility] Stop: 12/27/17 10:59 Last Admin: 10/29/17 03:04 Dose: 165 mls/hr Lactobacillus Rhamnosus (Culturelle 15b) 1 each PO DAILY [facility] Stop: 12/29/17 08:59 Miscellaneous (Vancomycin Iv Per Pharmacy) 1 ea PRN PRN PRN Reason: PROTOCOL Stop: 12/26/17 17:39 Miscellaneous (Probiotic Screen) 1 ea PRN PRN PRN Reason: PROTOCOL Stop: 12/28/17 09:29 Morphine Sulfate (Morphine) 2 mg IVP Q4H PRN PRN Reason: Pain (Moderate) Stop: 12/27/17 09:50 Last Admin: 10/29/17 08:59 Dose: 2 mg Morphine Sulfate (Morphine) 4 mg IVP Q4H PRN PRN Reason: Severe Pain Stop: 12/27/17 09:50 Ondansetron HCl (Zofran) 4 mg IV Q6H PRN PRN Reason: Nausea / Vomiting Stop: 12/26/17 17:48 - Procedures Procedures: Procedures Procedure Code Date APPLICATION OF FINGER SPLINT 70307 02/12/07 APPLICATION OF SPLINT 93.54 09/05/07 CLOSURE SKIN & SUBCUTANEOUS NEC 86.59 11/03/98 INJECT/INFUSE NEC 99.29 04/26/13 RESECTION OF APPENDIX, PERCUTANEOUS ENDOSCOPIC APPROACH [id number] 10/27/17 RPR S/N/AX/GEN/TRNK 2.5CM/< 95442 11/03/98
--- NOTE | 2017-10-29 14:23 | Pathology Report ---
[id number] Collection date: 10/28/2017 Surgeon: Dr. Armand Velasquez Specimen Description: Appendix Gross Description: Received in formalin is an 8.0 cm in length x 0.6 cm in diameter appendix with a small amount of morrow-terrazas exudate seen in part of the outer serosal surface. Sectioning shows an intact appendix wall and lumen with no focal lesions identified. [employer] sections are submitted in two cassettes labeled A1 and A2. Microscopic Description: The histologic sections show appendix with focal areas of acute inflammation seen extending through the entire thickness of the muscular wall with involvement of the mucosal and serosal surfaces. Diagnosis: Acute appendicitis. [facility]# [id number] [email or web address]
--- NOTE | 2017-10-29 21:53 | Infectious Disease Prog Note ---
Infectious Disease Subjective - Review of Systems Service Date: 10/29/17 Subjective: Laparoscopic appendectomy performed today Infectious Disease Objective - Results Result Diagrams: 10/28/17 04:15 10/28/17 04:15 Recent Labs: Laboratory Last Values WBC 4.5 Th/cmm (4.8-10.8) L 10/28/17 04:15 RBC 5.38 Mil/cmm (4.30-5.70) 10/28/17 04:15 Hgb 13.7 gm/dL (12-16) 10/28/17 04:15 Hct 42.0 % (41.0-60) 10/28/17 04:15 MCV 78.2 fl (80-99) L 10/28/17 04:15 MCH 25.5 pg (26.0-30.0) L 10/28/17 04:15 MCHC Differential 32.6 pg (28.0-36.0) 10/28/17 04:15 RDW 13.5 % (11.5-20.0) 10/28/17 04:15 Plt Count 255 Th/cmm (150-400) 10/28/17 04:15 MPV 8.8 fl 10/28/17 04:15 Neutrophils % 74.4 % (40.0-80.0) 10/27/17 13:48 Lymphocytes % 18.1 % (20.0-50.0) L 10/27/17 13:48 Monocytes % 3.9 % (2.0-10.0) 10/27/17 13:48 Eosinophils % 0.8 % (0.0-5.0) 10/27/17 13:48 Basophils % 2.8 % (0.0-2.0) H 10/27/17 13:48 Neutrophils (Manual) 36 % (40-80) L 10/28/17 04:15 Lymphocytes 53 % (20-50) H 10/28/17 04:15 Monocytes 7 % (2-10) 10/28/17 04:15 Eosinophils 4 % (0-5) 10/28/17 04:15 PT 11.5 SECONDS (9.5-11.5) 10/28/17 04:15 INR 1.10 (0.5-1.4) 10/28/17 04:15 PTT (Actin FS) 31.6 SECONDS (26.0-38.0) 10/28/17 04:15 Sodium 134 mEq/L (136-145) L 10/28/17 04:15 Potassium 3.5 mEq/L (3.5-5.1) 10/28/17 04:15 Chloride 102 mEq/L (98-107) 10/28/17 04:15 Carbon Dioxide 27.1 mEq/L (21.0-31.0) 10/28/17 04:15 Anion Gap 8.4 (7.0-16.0) 10/28/17 04:15 BUN 11 mg/dL (7-25) 10/28/17 04:15 Creatinine 0.9 mg/dL (0.7-1.3) 10/28/17 04:15 Est GFR ( Amer) > 60.0 ml/min (>90) 10/28/17 04:15 Est GFR (Non-Af Amer) > 60.0 ml/min 10/28/17 04:15 BUN/Creatinine Ratio 12.2 10/28/17 04:15 Glucose 102 mg/dL (70-105) 10/28/17 04:15 POC Glucose 102 MG/DL (70 - 105) 10/28/17 06:29 Calcium 9.2 mg/dL (8.6-10.3) 10/28/17 04:15 Total Bilirubin 1.1 mg/dL (0.3-1.0) H 10/27/17 13:48 AST 16 U/L (13-39) 10/27/17 13:48 ALT 16 U/L (7-52) 10/27/17 13:48 Alkaline Phosphatase 60 U/L (34-104) 10/27/17 13:48 Total Protein 7.9 gm/dL (6.0-8.3) 10/27/17 13:48 Albumin 4.3 gm/dL (4.2-5.5) 10/27/17 13:48 Globulin 3.6 gm/dL 10/27/17 13:48 Albumin/Globulin Ratio 1.2 (1.0-1.8) 10/27/17 13:48 Urine Source RANDOM 10/27/17 14:10 Urine Color YELLOW 10/27/17 14:10 Urine Clarity CLEAR (CLEAR) 10/27/17 14:10 Urine pH 7.5 (4.6 - 8.0) 10/27/17 14:10 Ur Specific [place] 1.015 (1.005-1.030) 10/27/17 14:10 Urine Protein TRACE mg/dL (NEGATIVE) 10/27/17 14:10 Urine Glucose (UA) NEGATIVE mg/dL (NEGATIVE) 10/27/17 14:10 Urine Ketones NEGATIVE mg/dL (NEGATIVE) 10/27/17 14:10 Urine Blood NEGATIVE (NEGATIVE) 10/27/17 14:10 Urine Nitrate NEGATIVE (NEGATIVE) 10/27/17 14:10 Urine Bilirubin NEGATIVE (NEGATIVE) 10/27/17 14:10 Urine Urobilinogen 1.0 E.U./dL (0.2 - 1.0) 10/27/17 14:10 Ur Leukocyte Esterase NEGATIVE (NEGATIVE) 10/27/17 14:10 Urine RBC NONE SEEN /hpf (0-5) 10/27/17 14:10 Urine WBC NONE SEEN /hpf (0-5) 10/27/17 14:10 Ur Epithelial Cells NONE SEEN /lpf (FEW) 10/27/17 14:10 Urine Bacteria NONE SEEN /hpf (NONE SEEN) 10/27/17 14:10 Vancomycin Trough 9.4 ug/mL (5-10) 10/29/17 10:15 - Physical Exam Vitals and I&O: Vital Signs Temp 98.7 F 10/29/17 16:00 Pulse 55 10/29/17 16:00 Resp 18 10/29/17 16:00 BP 139/83 10/29/17 16:00 Pulse Ox 99 10/29/17 16:00 Intake & Output 10/29/17 10/29/17 10/30/17 06:59 18:59 06:59 Intake Total 2000 1050 Output Total 600 800 Balance 1400 250 Weight (lbs) 68.039 kg 68.039 kg Intake: Intake, IV Amount 1650 D5-0.45NS 1,000 ml @ 75 1000 mls/hr IV .[id number] [facility] Rx #:[id number] Piperacillin Sodium/ 150 Tazobact 3.375 gm In Sodium Chloride 0.9% 50 ml @ 100 mls/hr IV Q8HR [facility] Rx#:[id number] Vancomycin HCl 1 gm In 500 Sodium Chloride 0.9% 250 ml @ 165 mls/hr IV Q8H [facility] Rx#:[id number] Oral 350 1050 Output: Urine 600 800 Other: Weight Source Estimated Bedscale Active Medications: Current Medications Acetaminophen (Tylenol 650mg Supp) 650 mg RC Q6H PRN PRN Reason: Pain or Fever >101 Stop: 12/26/17 17:49 Duloxetine HCl (Cymbalta) 30 mg PO DAILY [facility] PRN Reason: Protocol Stop: 12/27/17 08:59 Last Admin: 10/29/17 08:58 Dose: 30 mg Dextrose/Sodium Chloride (D5-0.45ns) 1,000 mls @ 75 mls/hr IV .[id number] [facility] Stop: 12/26/17 17:44 Last Admin: 10/29/17 06:30 Dose: 75 mls/hr Piperacillin Sod/Tazobactam (Sod 3.375 gm/ Sodium Chloride) 50 mls @ 100 mls/ hr IV Q8HR [facility] Stop: 12/26/17 20:59 Last Admin: 10/29/17 13:34 Dose: 100 mls/hr Vancomycin HCl 1 gm/ Sodium (Chloride) 250 mls @ 165 mls/hr IV Q8H [facility] Stop: 12/27/17 10:59 Last Admin: 10/29/17 12:41 Dose: 165 mls/hr Lactobacillus Rhamnosus (Culturelle 15b) 1 each PO DAILY [facility] Stop: 12/29/17 08:59 Miscellaneous (Vancomycin Iv Per Pharmacy) 1 ea PRN PRN PRN Reason: PROTOCOL Stop: 12/26/17 17:39 Miscellaneous (Probiotic Screen) 1 ea PRN PRN PRN Reason: PROTOCOL Stop: 12/28/17 09:29 Morphine Sulfate (Morphine) 2 mg IVP Q4H PRN PRN Reason: Pain (Moderate) Stop: 12/27/17 09:50 Last Admin: 10/29/17 18:32 Dose: 2 mg Morphine Sulfate (Morphine) 4 mg IVP Q4H PRN PRN Reason: Severe Pain Stop: 12/27/17 09:50 Ondansetron HCl (Zofran) 4 mg IV Q6H PRN PRN Reason: Nausea / Vomiting Stop: 12/26/17 17:48 General: no acute distress, well developed, well nourished HEENT: atraumatic, normocephalic, PERRLA Neck: supple, no thyromegaly, no lymphadenopathy Cardiovascular: S1S2, regular Lungs: clear to auscultation bilaterally, clear to percussion Abdomen: soft, no tender, no distended Extremities: no cyanosis, no clubbing, no edema Neurological: awake, alert, oriented - Procedures Procedures: Procedures Procedure Code Date APPLICATION OF FINGER SPLINT 57068 02/12/07 APPLICATION OF SPLINT 93.54 02/12/07 CLOSURE SKIN & SUBCUTANEOUS NEC 86.59 11/03/98 INJECT/INFUSE NEC 99.29 04/26/13 RESECTION OF APPENDIX, PERCUTANEOUS ENDOSCOPIC APPROACH [id number] 10/27/17 RPR S/N/AX/GEN/TRNK 2.5CM/< 80638 11/03/98 Infectious Disease Assmt/Plan - Assessment Assessment: 1. Acute appendicitis.. 2. Status post laparoscopic Appendectomy - Plan Plan: When he is ready for discharge, may change antibiotic to by mouth for 7 days from now.
--- NOTE | 2017-10-29 22:17 | Progress Notes ---
DATE: 10/29/2017 TIME: 8:21 p.m. He is postop day #1, status post laparoscopic appendectomy for early acute appendicitis, nonperforated. Overnight he is afebrile. Vital signs otherwise stable. He has some mild incisional pain, tolerating p.o. diet, ambulating well. Resting in bed comfortably. HEENT AND NECK: Within normal limits. CHEST: Clear to auscultation bilaterally. HEART: Regular rhythm and rate. ABDOMEN: Soft, mild incisional tenderness. Incisions clean and dry. Nondistended abdomen. No guarding, rebound or generalized peritoneal signs. NEUROVASCULAR: Otherwise normal. He is afebrile. Vital signs, stable. LABORATORY DATA: None obtained today. He has been on Zosyn IV antibiotics postoperatively. IMPRESSION AND PLAN: Overall stable postoperatively. He is afebrile. Vital signs are stable. He has a benign expected examination with mild incisional tenderness. Incisions clean and dry. No labs drawn today, but the operation was uneventful without complications. He has no obvious signs of bleeding or obvious signs of sepsis, stable for discharge home from a surgical standpoint and he is instructed to follow up in my office for any postoperative concerns or problems and he is given a prescription for postoperative pain and contact my office for any problems. We will schedule an office appointment for postoperative check. JOB# [id number]
--- NOTE | 2017-10-30 06:52 | Progress Notes ---
DATE: 10/30/2017 SUBJECTIVE: Chart reviewed and the patient interviewed. Also discussed the patient's condition with the staff and reviewed the records and labs. The patient's affect is brighter. The patient also seems to be less anxious and less depressed. The patient also said that the pain is less than what it was before. He denies any side effects of Cymbalta. Also, denies any thoughts of suicide or homicide. ASSESSMENT: The patient is improving. TREATMENT PLAN: Continue to monitor his behavior and his condition and continue Cymbalta. The patient will need outpatient counseling after his discharge. JOB# [id number]
[2017-10-30] MEDS ORDERED: Lactobacillus Rhamnosus GG 15 Billion CFU CAP.SPRINK PO SCH (09:00)
--- NOTE | 2017-10-30 16:02 | General Progress Note ---
Subjective - Review of Systems Events since last encounter: patient condition improving under no distress Objective - Results Result Diagrams: 10/28/17 04:15 10/28/17 04:15 Recent Labs: Laboratory Last Values WBC 4.5 Th/cmm (4.8-10.8) L 10/28/17 04:15 RBC 5.38 Mil/cmm (4.30-5.70) 10/28/17 04:15 Hgb 13.7 gm/dL (12-16) 10/28/17 04:15 Hct 42.0 % (41.0-60) 10/28/17 04:15 MCV 78.2 fl (80-99) L 10/28/17 04:15 MCH 25.5 pg (26.0-30.0) L 10/28/17 04:15 MCHC Differential 32.6 pg (28.0-36.0) 10/28/17 04:15 RDW 13.5 % (11.5-20.0) 10/28/17 04:15 Plt Count 255 Th/cmm (150-400) 10/28/17 04:15 MPV 8.8 fl 10/28/17 04:15 Neutrophils % 74.4 % (40.0-80.0) 10/27/17 13:48 Lymphocytes % 18.1 % (20.0-50.0) L 10/27/17 13:48 Monocytes % 3.9 % (2.0-10.0) 10/27/17 13:48 Eosinophils % 0.8 % (0.0-5.0) 10/27/17 13:48 Basophils % 2.8 % (0.0-2.0) H 10/27/17 13:48 Neutrophils (Manual) 36 % (40-80) L 10/28/17 04:15 Lymphocytes 53 % (20-50) H 10/28/17 04:15 Monocytes 7 % (2-10) 10/28/17 04:15 Eosinophils 4 % (0-5) 10/28/17 04:15 PT 11.5 SECONDS (9.5-11.5) 10/28/17 04:15 INR 1.10 (0.5-1.4) 10/28/17 04:15 PTT (Actin FS) 31.6 SECONDS (26.0-38.0) 10/28/17 04:15 Sodium 134 mEq/L (136-145) L 10/28/17 04:15 Potassium 3.5 mEq/L (3.5-5.1) 10/28/17 04:15 Chloride 102 mEq/L (98-107) 10/28/17 04:15 Carbon Dioxide 27.1 mEq/L (21.0-31.0) 10/28/17 04:15 Anion Gap 8.4 (7.0-16.0) 10/28/17 04:15 BUN 11 mg/dL (7-25) 10/28/17 04:15 Creatinine 0.9 mg/dL (0.7-1.3) 10/28/17 04:15 Est GFR ( Amer) > 60.0 ml/min (>90) 10/28/17 04:15 Est GFR (Non-Af Amer) > 60.0 ml/min 10/28/17 04:15 BUN/Creatinine Ratio 12.2 10/28/17 04:15 Glucose 102 mg/dL (70-105) 10/28/17 04:15 POC Glucose 102 MG/DL (70 - 105) 10/28/17 06:29 Calcium 9.2 mg/dL (8.6-10.3) 10/28/17 04:15 Total Bilirubin 1.1 mg/dL (0.3-1.0) H 10/27/17 13:48 AST 16 U/L (13-39) 10/27/17 13:48 ALT 16 U/L (7-52) 10/27/17 13:48 Alkaline Phosphatase 60 U/L (34-104) 10/27/17 13:48 Total Protein 7.9 gm/dL (6.0-8.3) 10/27/17 13:48 Albumin 4.3 gm/dL (4.2-5.5) 10/27/17 13:48 Globulin 3.6 gm/dL 10/27/17 13:48 Albumin/Globulin Ratio 1.2 (1.0-1.8) 10/27/17 13:48 Urine Source RANDOM 10/27/17 14:10 Urine Color YELLOW 10/27/17 14:10 Urine Clarity CLEAR (CLEAR) 10/27/17 14:10 Urine pH 7.5 (4.6 - 8.0) 10/27/17 14:10 Ur Specific [place] 1.015 (1.005-1.030) 10/27/17 14:10 Urine Protein TRACE mg/dL (NEGATIVE) 10/27/17 14:10 Urine Glucose (UA) NEGATIVE mg/dL (NEGATIVE) 10/27/17 14:10 Urine Ketones NEGATIVE mg/dL (NEGATIVE) 10/27/17 14:10 Urine Blood NEGATIVE (NEGATIVE) 10/27/17 14:10 Urine Nitrate NEGATIVE (NEGATIVE) 10/27/17 14:10 Urine Bilirubin NEGATIVE (NEGATIVE) 10/27/17 14:10 Urine Urobilinogen 1.0 E.U./dL (0.2 - 1.0) 10/27/17 14:10 Ur Leukocyte Esterase NEGATIVE (NEGATIVE) 10/27/17 14:10 Urine RBC NONE SEEN /hpf (0-5) 10/27/17 14:10 Urine WBC NONE SEEN /hpf (0-5) 10/27/17 14:10 Ur Epithelial Cells NONE SEEN /lpf (FEW) 10/27/17 14:10 Urine Bacteria NONE SEEN /hpf (NONE SEEN) 10/27/17 14:10 Vancomycin Trough 9.4 ug/mL (5-10) 10/29/17 10:15 - Physical Exam Vitals and I&O: Vital Signs Temp 98.2 F 10/30/17 11:46 Pulse 60 10/30/17 11:46 Resp 19 10/30/17 11:46 BP 122/86 10/30/17 11:46 Pulse Ox 100 10/30/17 11:46 Intake & Output 10/29/17 10/30/17 10/30/17 18:59 06:59 18:59 Intake Total 300 2150 Output Total 1150 Balance 300 1000 Weight (lbs) 68.039 kg Intake: Intake, IV Amount 300 600 Piperacillin Sodium/ 50 100 Tazobact 3.375 gm In Sodium Chloride 0.9% 50 ml @ 100 mls/hr IV Q8HR [facility] Rx#:[id number] Vancomycin HCl 1 gm In 250 500 Sodium Chloride 0.9% 250 ml @ 165 mls/hr IV Q8H [facility] Rx#:[id number] Oral 1550 Output: Urine 1150 Other: Weight Source Bedscale Active Medications: Current Medications Acetaminophen (Tylenol 650mg Supp) 650 mg RC Q6H PRN PRN Reason: Pain or Fever >101 Stop: 12/26/17 17:49 Duloxetine HCl (Cymbalta) 30 mg PO DAILY [facility] PRN Reason: Protocol Stop: 12/27/17 08:59 Last Admin: 10/30/17 10:03 Dose: 30 mg Dextrose/Sodium Chloride (D5-0.45ns) 1,000 mls @ 75 mls/hr IV .[id number] [facility] Stop: 12/26/17 17:44 Last Admin: 10/29/17 06:30 Dose: 75 mls/hr Piperacillin Sod/Tazobactam (Sod 3.375 gm/ Sodium Chloride) 50 mls @ 100 mls/ hr IV Q8HR [facility] Stop: 12/26/17 20:59 Last Admin: 10/30/17 13:08 Dose: 100 mls/hr Vancomycin HCl 1 gm/ Sodium (Chloride) 250 mls @ 165 mls/hr IV Q8H [facility] Stop: 12/27/17 10:59 Last Admin: 10/30/17 11:00 Dose: 165 mls/hr Lactobacillus Rhamnosus (Culturelle 15b) 1 each PO DAILY [facility] Stop: 12/29/17 08:59 Last Admin: 10/30/17 10:02 Dose: 1 each Miscellaneous (Vancomycin Iv Per Pharmacy) 1 ea PRN PRN PRN Reason: PROTOCOL Stop: 12/26/17 17:39 Miscellaneous (Probiotic Screen) 1 ea PRN PRN PRN Reason: PROTOCOL Stop: 12/28/17 09:29 Morphine Sulfate (Morphine) 2 mg IVP Q4H PRN PRN Reason: Pain (Moderate) Stop: 12/27/17 09:50 Last Admin: 10/29/17 22:06 Dose: 2 mg Morphine Sulfate (Morphine) 4 mg IVP Q4H PRN PRN Reason: Severe Pain Stop: 12/27/17 09:50 Ondansetron HCl (Zofran) 4 mg IV Q6H PRN PRN Reason: Nausea / Vomiting Stop: 12/26/17 17:48 - Procedures Procedures: Procedures Procedure Code Date APPLICATION OF FINGER SPLINT 47183 02/12/07 APPLICATION OF SPLINT 93.54 02/12/07 CLOSURE SKIN & SUBCUTANEOUS NEC 86.59 11/03/98 INJECT/INFUSE NEC 99.29 04/26/13 RESECTION OF APPENDIX, PERCUTANEOUS ENDOSCOPIC APPROACH [id number] 10/27/17 RPR S/N/AX/GEN/TRNK 2.5CM/< 44320 11/03/98
--- NOTE | 2017-10-30 16:06 | Infectious Disease Prog Note ---
Infectious Disease Subjective - Review of Systems Service Date: 10/30/17 Subjective: Laparoscopic appendectomy performed today Infectious Disease Objective - Results Result Diagrams: 10/28/17 04:15 10/28/17 04:15 Recent Labs: Laboratory Last Values WBC 4.5 Th/cmm (4.8-10.8) L 10/28/17 04:15 RBC 5.38 Mil/cmm (4.30-5.70) 10/28/17 04:15 Hgb 13.7 gm/dL (12-16) 10/28/17 04:15 Hct 42.0 % (41.0-60) 10/28/17 04:15 MCV 78.2 fl (80-99) L 10/28/17 04:15 MCH 25.5 pg (26.0-30.0) L 10/28/17 04:15 MCHC Differential 32.6 pg (28.0-36.0) 10/28/17 04:15 RDW 13.5 % (11.5-20.0) 10/28/17 04:15 Plt Count 255 Th/cmm (150-400) 10/28/17 04:15 MPV 8.8 fl 10/28/17 04:15 Neutrophils % 74.4 % (40.0-80.0) 10/27/17 13:48 Lymphocytes % 18.1 % (20.0-50.0) L 10/27/17 13:48 Monocytes % 3.9 % (2.0-10.0) 10/27/17 13:48 Eosinophils % 0.8 % (0.0-5.0) 10/27/17 13:48 Basophils % 2.8 % (0.0-2.0) H 10/27/17 13:48 Neutrophils (Manual) 36 % (40-80) L 10/28/17 04:15 Lymphocytes 53 % (20-50) H 10/28/17 04:15 Monocytes 7 % (2-10) 10/28/17 04:15 Eosinophils 4 % (0-5) 10/28/17 04:15 PT 11.5 SECONDS (9.5-11.5) 10/28/17 04:15 INR 1.10 (0.5-1.4) 10/28/17 04:15 PTT (Actin FS) 31.6 SECONDS (26.0-38.0) 10/28/17 04:15 Sodium 134 mEq/L (136-145) L 10/28/17 04:15 Potassium 3.5 mEq/L (3.5-5.1) 10/28/17 04:15 Chloride 102 mEq/L (98-107) 10/28/17 04:15 Carbon Dioxide 27.1 mEq/L (21.0-31.0) 10/28/17 04:15 Anion Gap 8.4 (7.0-16.0) 10/28/17 04:15 BUN 11 mg/dL (7-25) 10/28/17 04:15 Creatinine 0.9 mg/dL (0.7-1.3) 10/28/17 04:15 Est GFR ( Amer) > 60.0 ml/min (>90) 10/28/17 04:15 Est GFR (Non-Af Amer) > 60.0 ml/min 10/28/17 04:15 BUN/Creatinine Ratio 12.2 10/28/17 04:15 Glucose 102 mg/dL (70-105) 10/28/17 04:15 POC Glucose 102 MG/DL (70 - 105) 10/28/17 06:29 Calcium 9.2 mg/dL (8.6-10.3) 10/28/17 04:15 Total Bilirubin 1.1 mg/dL (0.3-1.0) H 10/27/17 13:48 AST 16 U/L (13-39) 10/27/17 13:48 ALT 16 U/L (7-52) 10/27/17 13:48 Alkaline Phosphatase 60 U/L (34-104) 10/27/17 13:48 Total Protein 7.9 gm/dL (6.0-8.3) 10/27/17 13:48 Albumin 4.3 gm/dL (4.2-5.5) 10/27/17 13:48 Globulin 3.6 gm/dL 10/27/17 13:48 Albumin/Globulin Ratio 1.2 (1.0-1.8) 10/27/17 13:48 Urine Source RANDOM 10/27/17 14:10 Urine Color YELLOW 10/27/17 14:10 Urine Clarity CLEAR (CLEAR) 10/27/17 14:10 Urine pH 7.5 (4.6 - 8.0) 10/27/17 14:10 Ur Specific [place] 1.015 (1.005-1.030) 10/27/17 14:10 Urine Protein TRACE mg/dL (NEGATIVE) 10/27/17 14:10 Urine Glucose (UA) NEGATIVE mg/dL (NEGATIVE) 10/27/17 14:10 Urine Ketones NEGATIVE mg/dL (NEGATIVE) 10/27/17 14:10 Urine Blood NEGATIVE (NEGATIVE) 10/27/17 14:10 Urine Nitrate NEGATIVE (NEGATIVE) 10/27/17 14:10 Urine Bilirubin NEGATIVE (NEGATIVE) 10/27/17 14:10 Urine Urobilinogen 1.0 E.U./dL (0.2 - 1.0) 10/27/17 14:10 Ur Leukocyte Esterase NEGATIVE (NEGATIVE) 10/27/17 14:10 Urine RBC NONE SEEN /hpf (0-5) 10/27/17 14:10 Urine WBC NONE SEEN /hpf (0-5) 10/27/17 14:10 Ur Epithelial Cells NONE SEEN /lpf (FEW) 10/27/17 14:10 Urine Bacteria NONE SEEN /hpf (NONE SEEN) 10/27/17 14:10 Vancomycin Trough 9.4 ug/mL (5-10) 10/29/17 10:15 - Physical Exam Vitals and I&O: Vital Signs Temp 98.2 F 10/30/17 11:46 Pulse 60 10/30/17 11:46 Resp 19 10/30/17 11:46 BP 122/86 10/30/17 11:46 Pulse Ox 100 10/30/17 11:46 Intake & Output 10/29/17 10/30/17 10/30/17 18:59 06:59 18:59 Intake Total 300 2150 Output Total 1150 Balance 300 1000 Weight (lbs) 68.039 kg Intake: Intake, IV Amount 300 600 Piperacillin Sodium/ 50 100 Tazobact 3.375 gm In Sodium Chloride 0.9% 50 ml @ 100 mls/hr IV Q8HR [facility] Rx#:[id number] Vancomycin HCl 1 gm In 250 500 Sodium Chloride 0.9% 250 ml @ 165 mls/hr IV Q8H [facility] Rx#:[id number] Oral 1550 Output: Urine 1150 Other: Weight Source Bedscale Active Medications: Current Medications Acetaminophen (Tylenol 650mg Supp) 650 mg RC Q6H PRN PRN Reason: Pain or Fever >101 Stop: 12/26/17 17:49 Duloxetine HCl (Cymbalta) 30 mg PO DAILY [facility] PRN Reason: Protocol Stop: 12/27/17 08:59 Last Admin: 10/30/17 10:03 Dose: 30 mg Dextrose/Sodium Chloride (D5-0.45ns) 1,000 mls @ 75 mls/hr IV .[id number] [facility] Stop: 12/26/17 17:44 Last Admin: 10/29/17 06:30 Dose: 75 mls/hr Piperacillin Sod/Tazobactam (Sod 3.375 gm/ Sodium Chloride) 50 mls @ 100 mls/ hr IV Q8HR [facility] Stop: 12/26/17 20:59 Last Admin: 10/30/17 13:08 Dose: 100 mls/hr Vancomycin HCl 1 gm/ Sodium (Chloride) 250 mls @ 165 mls/hr IV Q8H [facility] Stop: 12/27/17 10:59 Last Admin: 10/30/17 11:00 Dose: 165 mls/hr Lactobacillus Rhamnosus (Culturelle 15b) 1 each PO DAILY [facility] Stop: 12/29/17 08:59 Last Admin: 10/30/17 10:02 Dose: 1 each Miscellaneous (Vancomycin Iv Per Pharmacy) 1 ea PRN PRN PRN Reason: PROTOCOL Stop: 12/26/17 17:39 Miscellaneous (Probiotic Screen) 1 [facility] PRN PRN PRN Reason: PROTOCOL Stop: 12/28/17 09:29 Morphine Sulfate (Morphine) 2 mg IVP Q4H PRN PRN Reason: Pain (Moderate) Stop: 12/27/17 09:50 Last Admin: 10/29/17 22:06 Dose: 2 mg Morphine Sulfate (Morphine) 4 mg IVP Q4H PRN PRN Reason: Severe Pain Stop: 12/27/17 09:50 Ondansetron HCl (Zofran) 4 mg IV Q6H PRN PRN Reason: Nausea / Vomiting Stop: 12/26/17 17:48 General: no acute distress, well developed, well nourished HEENT: atraumatic, normocephalic, PERRLA, EOMI Neck: supple, no thyromegaly Cardiovascular: S1S2, regular Lungs: clear to auscultation bilaterally, clear to percussion Abdomen: soft, no tender, no distended, no mass Extremities: no cyanosis, no clubbing, no edema Neurological: awake, alert, oriented Skin: intact - Procedures Procedures: Procedures Procedure Code Date APPLICATION OF FINGER SPLINT 49666 02/12/07 APPLICATION OF SPLINT 93.54 02/12/07 CLOSURE SKIN & SUBCUTANEOUS NEC 86.59 11/03/98 INJECT/INFUSE NEC 99.29 04/26/13 RESECTION OF APPENDIX, PERCUTANEOUS ENDOSCOPIC APPROACH [id number] 10/27/17 RPR S/N/AX/GEN/TRNK 2.5CM/< 81573 11/03/98 Infectious Disease Assmt/Plan - Assessment Assessment: 1. Acute appendicitis.. 2. Status post laparoscopic Appendectomy - Plan Plan: When he is ready for discharge, may change antibiotic to by mouth for 7 days from now.
--- NOTE | 2017-10-31 17:22 | History & Physical ---
ADMIT DATE: 10/27/2017 HISTORY OF PRESENT ILLNESS: The patient was admitted on 10/27/2017 complaining of abdominal pain, came to the Emergency Room, was also vomiting and right lower quadrant pain and the patient had a workup done, which showed possible appendicitis. PAST MEDICAL HISTORY: Including history of drug abuse. No other problem. PHYSICAL EXAMINATION: HEAD: Normal. ENT: Normal. NECK: Supple, Nontender. CARDIOVASCULAR SYSTEM: S1, S2. ABDOMEN: Soft. Bowel sounds heard. CENTRAL NERVOUS SYSTEM: Grossly normal. LABORATORY DATA: White count was 9.0. DIAGNOSIS: Acute appendicitis was made. I called the surgeon to see patient and the patient is being admitted and we will follow the patient. [facility]# [id number]
== END 2017-10-30 16:47 | disposition home or self-care (01) | DRG 234 ==
LOC: ER 13:23 → MSI 16:59
PROVIDERS: ADMIT Internal Medicine; ATTEND Internal Medicine
PROC: 0DTJ4ZZ Resection of Appendix, Percutaneous Endoscopic Approach (ICD-10-PCS; principal; 2017-10-28)
DX: K35.80 Unspecified acute appendicitis (principal); R65.10 Systemic inflammatory response syndrome (SIRS) of non-infectious origin without acute organ dysfunction; F33.9 Major depressive disorder, recurrent, unspecified; Z79.899 Other long term (current) drug therapy
CPT/HCPCS: 36415-UA; 71045-TC; 80048-TC; 80053-TC; 80202-TC; 81001-TC; 82948-90; 85007-TC; 85025-TC; 85027-TC; 85610-TC; 85730-TC; 88304-TC; 93005; 96372; J2001; J2405; J2543; J2704; J2710; J3010; J3370; J7040; Q9967; X6258; X6530; Z7610